=== PATIENT | female | born 1985 | race Two or more races ===

== ENCOUNTER 2017-11-04 20:22 | Observation (INO) | payer OTHER ==
[~2017-11-04] VITALS: Ht 165.1 cm; Wt 48.1 kg
[2017-11-04] MEDS ORDERED: SODIUM CHLORIDE 0.9% 500 ML IV ONE (21:15)
[2017-11-04] MEDS ORDERED: ALBUTEROL SULF 2.5 MG/0.5ML(0.5%) NEB SOLN HHN ONE (21:15)
[2017-11-04] MEDS ORDERED: IPRATROPIUM BROM 0.5 MG/2.5ML INH SOL HHN ONE (21:15)
[2017-11-04] MEDS ORDERED: TERBUTALINE SULFATE 1 MG/ML 1ML VIAL SC ONE (21:15)
[2017-11-04] MEDS ORDERED: methylPREDNISolone SOD SUCC 125 MG/2 ML VL IV ONE (21:15)
[2017-11-05 00:38] VITALS: BP 107/60
== END 2017-11-05 01:25 | disposition home or self-care (01) | DRG 203 ==
LOC: EDBD 20:22 → ER 20:30 → OVERFLOW 20:31 → ER 11-05 01:25
PROVIDERS: ADMIT Emergency Medicine; ATTEND Emergency Medicine
DX: J45.909 Unspecified asthma, uncomplicated (principal)
CPT/HCPCS: 71045; 94640; 96372; 96374; 99285; G0378; J2930; J3105; J7030; J7611; J7644

== ENCOUNTER 2018-09-16 13:46 | Emergency (ER) | payer OTHER ==
[~2018-09-16] VITALS: Ht 165.1 cm; Wt 49.9 kg
[2018-09-16 14:18] VITALS: BP 105/67
[2018-09-16] MEDS ORDERED: ONDANSETRON ODT 4 MG TAB PO ONE (14:45)
[2018-09-16] MEDS ORDERED: KETOROLAC TROMETH 15 mg/ml 1ML VL IM ONE (14:45)
[2018-09-16] MEDS ORDERED: diphenhdrAMINE HCL 25 MG CAP PO ONE (14:45)
== END 2018-09-16 16:02 | disposition home or self-care (01) ==
LOC: ER 13:49
DX: R51 Headache (principal); M54.2 Cervicalgia; R20.0 Anesthesia of skin; J45.909 Unspecified asthma, uncomplicated; Z88.0 Allergy status to penicillin; Z88.1 Allergy status to other antibiotic agents; V43.62XA Car passenger injured in collision with other type car in traffic accident, initial encounter; Y93.89 Activity, other specified; Y99.8 Other external cause status; Y92.410 Unspecified street and highway as the place of occurrence of the external cause
CPT/HCPCS: 70450; 96372; 99284; J1885; Q0162

== ENCOUNTER 2021-10-12 22:41 | Emergency (ER) | payer OTHER ==
[~2021-10-12] VITALS: Ht 165.1 cm; Wt 51.0 kg
[2021-10-12] MEDS ORDERED: diphenhdrAMINE HCL 50 MG/1 ML VL IV ONE (23:45)
[2021-10-12] MEDS ORDERED: ALBUTEROL SULF 2.5 MG/0.5ML(0.5%) NEB SOLN NEB ONE (23:45)
[2021-10-12] MEDS ORDERED: FAMOTIDINE (10MG/ML) 2ML VL IV ONE (23:45)
[2021-10-12] MEDS ORDERED: DexAMETHasone INJECTION 10 MG in D5W 5% 50 ML IV ONE (23:45)
[2021-10-12] MEDS ORDERED: SODIUM CHLORIDE 0.9% 1,000 ML IV ONE (23:45)
[2021-10-12] MEDS ORDERED: DexAMETHasone SOD PHOS 10MG/1ML VIAL INJ ONE (23:57)
[2021-10-13 00:33] LABS: Basophils # (auto) 0 10 ^3/uL (0-0.2); Basophils % (auto) 0.1 % (0.0-2.0); Eosinophils # (auto) 0.1 10 ^3/uL (0-0.8); Hematocrit 39.5 % (36.0-46.0); Hemoglobin 12.9 g/dL (12.2-16.2); Lymphocytes # (auto) 1.6 10 ^3/uL (0.4-5.4); Lymphocytes % (auto) 24.2 % (10.0-50.0); Mean Corpuscular Hemoglobin 29.9 pg (28.0-32.0); Mean Corpuscular Hgb Conc. 32.7 g/dL (32.0-36.0); Mean Corpuscular Volume 91.7 fL (80.0-100.0); Monocytes # (auto) 0.5 10 ^3/uL (0-1.3); Monocytes % (auto) 6.8 % (0.0-12.0); Neutrophils # (auto) 4.5 10 ^3/uL (1.6-8.6); Neutrophils % (auto) 66.9 % (37.0-80.0); Red Blood Cells 4.31 10^6/uL (4.0-5.20); Red Cell Distribution Width 13.2 % (11.8-14.3); White Blood Cell 6.7 10^3/uL (4.4-10.8)
[2021-10-13 01:16] LABS: Albumin 3.9 g/dL (3.4-5.0); BUN/Creatinine Ratio 22.7; Calcium 8.9 mg/dL (8.5-10.1); Potassium 3.5 mmol/L (3.5-5.1)
[2021-10-13 01:18] LABS: Bilirubin, Total 0.5 mg/dL (0.2-1.0); Total Protein 6.7 g/dL (6.4-8.2)
[2021-10-13] MEDS ORDERED: PRED20TA2 PO ×2 (03:12→03:26)
[2021-10-13 03:27] VITALS: BP 101/63
== END 2021-10-13 03:28 | disposition home or self-care (01) ==
LOC: ER 22:41
DX: T78.40XA Allergy, unspecified, initial encounter (principal); J45.909 Unspecified asthma, uncomplicated; Z88.0 Allergy status to penicillin; Z88.1 Allergy status to other antibiotic agents; Z91.040 Latex allergy status; X58.XXXA Exposure to other specified factors, initial encounter
CPT/HCPCS: 36415; 71045; 80053; 84702; 85025; 94640; 96365; 96375; 99285; J1100; J1200; J3490; J7030; J7060